=== PATIENT | male | born 1960 | race Caucasian/White ===

== ENCOUNTER → 2017-04-30 | Outpatient (CLI) | payer OTHER ==
[~2017-04-30] MED LIST: ADALAT CC60 MG PO; ADULT LOW DOSE81 MG PO; ASPIRIN EC81 M1 PO; COUMADIN 2.5MG2.5 M1 PO; DOXYCYCLINE 10100 M1 PO; DYAZIDE 37.5-21 EACH; FISH OIL 1,0001 EAC5 PO; FISH OIL 1,2001 EAC4 PO; FLECAINIDE ACE100 MG PO; LIPITOR10 MG PO; LIPITOR20 MG PO; LISINOPRIL40 MG PO; LOVENOX; NIFEDIPINE; NORCO 5-325 TA1 EACH PO; OMEPRAZOLE PO; PACERONE 200 M200 M1 NG; PACERONE 200 M200 M1 PO; POTASSIUM20 PO; POTASSIUM99 M1 PO; PRILOSEC 20 MG20 MG PO; PROCARDIA XL60 MG PO; PROTONIX40 M2 PO; SOTALOL 120 MG120 M1 PO; TOPROL XL100 MG PO; TRIAMTERENE/HCT1 CA1 PO; VITAMIN D-32000 UNIT PO; VITAMIN D1000 UNI1 PO; ZOCOR40 MG PO
== END ==
LOC: RAD 12:12
DX: R09.89 Other specified symptoms and signs involving the circulatory and respiratory systems (principal)

== ENCOUNTER → 2018-12-21 | Outpatient (CLI) | payer OTHER ==
--- NOTE | 2018-12-21 09:25 | 2DMMODE ---
[facility] [place] [address] 2 D/M-MODE ECHOCARDIOGRAM Name: SAUL ARIAS Room #: REG CL [facility]#: [id number] ������������� Admission: 12/21/18 ������������� Attend Phys: Blake Zepeda, Discharge: ��� ������������� ��� Date of : 60 Date of Service: 12/21/18 0925 �� Report #: [id number] �������� ��������������������������������������������[id number] THIS REPORT FOR: //name// APPROVED REPORT Study performed: 12/21/2018 08:55:46 EXAM: Comprehensive 2D, Doppler, and color-flow Echocardiogram Patient Location: Out-Patient Status: routine BSA: 2.30 HR: 65 bpm BP: 138/98 mmHg Rhythm: NSR Other Information Study Quality: GoodAdequate Indications Atrial Fibrillation Hx: ablation, Afib. 2D Dimensions RVDd: 30.51 mm IVSd: 12.05 (7-11mm) LVOT Diam: 21.94 (18-24mm) LVDd: 50.96 mm PWd: 12.14 (7-11mm) LVDs: 34.04 (25-40mm) Aortic Root: 39.27 mm Volumes Left Atrial Volume (Systole) Single Plane 4CH: 63.24 mL Single Plane 2CH: 75.25 mL LA ESV Index: 32.00 mL/m2 Aortic Valve AoV Peak Eddie.: 1.65 m/s AO Peak Gr.: 10.84 mmHg LVOT Max P.38 mmHg LVOT Max V: 1.76 m/s VIRA Vmax: 4.04 cm2 Mitral Valve E/A Ratio: 0.8 MV Decel. Time: 252.78 ms [facility] [place] [address] 2 D/M-MODE ECHOCARDIOGRAM Name: SAUL ARIAS Room #: REG CL [facility]#: [id number] ������������� Admission: 12/21/18 ������������� Attend Phys: Blake Zepeda, Discharge: ��� ������������� ��� Date of : 60 Date of Service: 12/21/18 0925 �� Report #: [id number] �������� ��������������������������������������������[id number] MV E Max Eddie.: 0.71 m/s MV A Eddie.: 0.84 m/s MV PHT: 73.31 ms IVRT: 73.82 ms Pulmonary Valve PV Peak Eddie.: 0.95 m/s PV Peak Gr.: 3.59 mmHg Pulmonary Vein P Vein S: 0.64 m/s P Vein A: 0.31 m/s P Vein D: 0.49 m/s P Vein A Dur.: 106.1 msec P Vein S/D Ratio: 1.31 Tricuspid Valve TR Peak Eddie.: 2.48 m/s RAP Estimate: 5.00 mmHg TR Peak Gr.: 24.66 mmHg PA Pressure: 30.00 mmHg Left Ventricle The left ventricle is normal size. There is normal LV segmental wall motion. Mild concentric left ventricular hypertrophy. Left ventricular systolic function is normal. LVEF is 65-70%. Mild diastolic dysfunction is present (impaired relaxation pattern). Right Ventricle The right ventricle is normal size. The right ventricular systolic function is normal. Atria The left atrium size is normal. The right atrium size is normal. Aortic Valve The aortic valve is normal in structure. Mild aortic regurgitation. There is no aortic valvular stenosis. Mitral Valve The mitral valve is normal in structure. No mitral regurgitation. Tricuspid Valve The tricuspid valve is normal in structure. Trace tricuspid regurgitation. Estimated PAP is 30mmHg. Pulmonic Valve [facility] [place] [address] 2 D/M-MODE ECHOCARDIOGRAM Name: JUANASAUL Room #: REG CL [facility]#: [id number] ������������� Admission: 12/21/18 ������������� Attend Phys: Blake Zepeda, Discharge: ��� ������������� ��� Date of : 60 Date of Service: 12/21/18 0925 �� Report #: [id number] �������� ��������������������������������������������[id number] The pulmonary valve is normal in structure. Trace pulmonic regurgitation. Great Vessels Aortic root is mildly dilated at 3.9cm. Ascending aorta is not well visualized. IVC is normal in size and collapses >50% with inspiration. Pericardium There is no pericardial effusion. <Conclusion> Left ventricular systolic function is normal. There is normal LV segmental wall motion. LVEF is 65-70%. Mild diastolic dysfunction The aortic valve is normal in structure. Mild aortic regurgitation, no stenosis. The mitral valve is normal in structure. No mitral regurgitation. Trace tricuspid regurgitation. Estimated pulmonary artery pressure of 30mmHg. There is no pericardial effusion. ��������������������������������������������� <ELECTRONICALLY SIGNED> ���������������������������������������� By: Blake Zepeda MD, [facility] ��������������������������������������������� 12/21/18924 4 4 Blake Zepeda MD, FAC /INF
== END ==
LOC: CV 07:52
DX: I65.23 Occlusion and stenosis of bilateral carotid arteries (principal); I35.1 Nonrheumatic aortic (valve) insufficiency; I11.9 Hypertensive heart disease without heart failure; I48.0 Paroxysmal atrial fibrillation; I63.429 Cerebral infarction due to embolism of unspecified anterior cerebral artery

== ENCOUNTER → 2019-11-24 | Outpatient (CLI) | payer OTHER | LOC: RAD 07:32 | DX: J45.40 Moderate persistent asthma, uncomplicated (principal) ==

== ENCOUNTER 2020-07-02 13:47 | Emergency (ER) | payer OTHER ==
[~2020-07-02] VITALS: Ht 185.4 cm; Wt 105.7 kg
[2020-07-02 14:20] LABS: HEMOGLOBIN 15.9 gm/dL (14.0-18.0)
[2020-07-02] MEDS ORDERED: AMOXICILLIN 50500 M1 PO (16:51)
[2020-07-02] MEDS ORDERED: TRAMADOL 50 MG50 MG PO (16:51)
[2020-07-02 17:17] VITALS: BP 165/100
== END 2020-07-02 17:18 | disposition home or self-care (01) ==
LOC: ER 13:47
PROVIDERS: Nurse Practitioner
DX: R04.0 Epistaxis (principal); R42 Dizziness and giddiness; I48.0 Paroxysmal atrial fibrillation; D68.318 Other hemorrhagic disorder due to intrinsic circulating anticoagulants, antibodies, or inhibitors; I10 Essential (primary) hypertension; E78.5 Hyperlipidemia, unspecified; Z90.49 Acquired absence of other specified parts of digestive tract; Z79.82 Long term (current) use of aspirin; Z79.2 Long term (current) use of antibiotics; Z79.899 Other long term (current) drug therapy

== ENCOUNTER → 2020-07-09 | Outpatient (CLI) | payer OTHER ==
[~2020-07-09] MED LIST changes: +AMOXICILLIN 50500 M1 PO; +TRAMADOL 50 MG50 MG PO
== END ==
LOC: LAB 08:54
PROVIDERS: ATTEND Internal Medicine
DX: U07.1 COVID-19 (principal)

== ENCOUNTER → 2020-09-19 | Outpatient (CLI) | payer OTHER | LOC: SJCVCIMAG 09:22 | PROVIDERS: ATTEND Internal Medicine | DX: I08.3 Combined rheumatic disorders of mitral, aortic and tricuspid valves (principal); I11.0 Hypertensive heart disease with heart failure; G47.33 Obstructive sleep apnea (adult) (pediatric); I48.91 Unspecified atrial fibrillation; Z86.16 Personal history of COVID-19; Z86.73 Personal history of transient ischemic attack (TIA), and cerebral infarction without residual deficits ==

== ENCOUNTER → 2021-03-22 | Outpatient (CLI) | payer OTHER | LOC: SJCVCIMAG 11:04 | PROVIDERS: ATTEND Internal Medicine | DX: R22.1 Localized swelling, mass and lump, neck (principal) ==